=== PATIENT | female | born 1960 | race African-American/Black ===

== ENCOUNTER → 2017-08-04 | Outpatient (CLI) | payer OTHER ==
[2016-09-20 13:05] VITALS: BP 192/81
[~2017-08-04] MED LIST: DIPH25CA58 PO; FAMO-63 PO; LIDO20SO PO; PRED50TA PO
--- NOTE | 2017-08-04 15:08 | RAD ---
DATE: 08/04/2017 EXAM: DIGITAL SCREEN BILAT W/CAD HISTORY: Screening COMPARISON: One year earlier This study was interpreted with the benefit of Computerized Aided Detection (CAD). FINDINGS: Breast Density: SCATTERED The breast parenchyma shows scattered fibroglandular densities. Breast parenchyma level B. There has been little change when compared to the previous exam. Benign-appearing calcifications are noted in the left breast. Lymph nodes are noted in the left axilla IMPRESSION: Benign finding BI-RADS CATEGORY: 2 BENIGN FINDING(S) RECOMMENDED FOLLOW-UP: 12M 12 MONTH FOLLOW-UP PQRS compliance statement: Patient information was entered into a reminder system with a target due date 08/04/2018 for the next mammogram. Mammography is a sensitive method for finding small breast cancers, but it does not detect them all and is not a substitute for careful clinical examination. A negative mammogram does not negate a clinically suspicious finding and should not result in delay in biopsying a clinically suspicious abnormality. "Our facility is accredited by the [employer] Mammography [employer]."
== END | disposition home or self-care (01) ==
LOC: MAMMO 10:30
PROVIDERS: ATTEND Family Medicine
DX: Z12.31 Encounter for screening mammogram for malignant neoplasm of breast (principal)
CPT/HCPCS: G0202; 77067

== ENCOUNTER → 2018-06-27 | Outpatient (CLI) | payer OTHER ==
[2016-09-20 13:05] VITALS: BP 192/81
--- NOTE | 2018-06-27 15:06 | RAD ---
DATE: 06/27/2018 EXAM: MAMMO DAVE DIAG BILAT HISTORY: Right breast lump COMPARISON: 08/04/2017 This study was interpreted with the benefit of Computerized Aided Detection (CAD). The fibroglandular tissues in both breasts are heterogeneously somewhat nodular in character. The breast parenchyma shows scattered fibroglandular densities. Breast parenchyma level B. FINDINGS: 2-D and 3-D tomosynthesis imaging was performed in CC and MLO projections. The patient cannot currently pinpoint a palpable lump, however, reportedly the area of concern was at the 9:00 location in the right breast. No new or enlarging breast densities are seen. Benign type calcifications are present. No suspicious microcalcifications have developed. Right breast ultrasound, 06/27/2018: A targeted ultrasound exam of the right breast was performed from the 8:00 to 10:00 locations. The fibroglandular tissues are heterogeneous. No solid mass or unusual fluid collection is seen. There is a suggestion of a small benign-appearing lymph node at the 9:00 location. IMPRESSION: 1. Stable mammograms without evidence of malignancy. 2. The targeted ultrasound exam of the right breast reveals no significant abnormality. 3. Further clinical surveillance of any area of palpable concern is suggested. BI-RADS CATEGORY: 2 BENIGN FINDING(S) RECOMMENDED FOLLOW-UP: 12M 12 MONTH FOLLOW-UP PQRS compliance statement: Patient information was entered into a reminder system with a target due date for the next mammogram. Mammography is a sensitive method for finding small breast cancers, but it does not detect them all and is not a substitute for careful clinical examination. A negative mammogram does not negate a clinically suspicious finding and should not result in delay in biopsying a clinically suspicious abnormality. "Our facility is accredited by the [employer] Mammography [employer]."
== END | disposition home or self-care (01) ==
LOC: MAMMO 15:16
PROVIDERS: ATTEND Obstetrics & Gynecology
DX: R92.8 Other abnormal and inconclusive findings on diagnostic imaging of breast (principal); I10 Essential (primary) hypertension
CPT/HCPCS: 76641; 77066; G0279; 77062

== ENCOUNTER → 2019-11-20 | Outpatient (CLI) | payer OTHER ==
[2019-04-10 21:20] VITALS: BP 143/67
--- NOTE | 2019-11-21 12:56 | RAD ---
EXAM: BILATERAL DIGITAL SCREENING MAMMOGRAPHY. HISTORY: Routine mammographic screening. TECHNIQUE: Bilateral full field digital images were obtained in CC and MLO projections. Computer-aided detection was applied. COMPARISON: 08/04/2017. COMPOSITION: B. There are scattered areas of fibroglandular density. FINDINGS: Coarse and scattered calcifications are benign. There are no suspicious masses, microcalcifications or architectural distortion. The parenchymal pattern is stable. BI-RADS CATEGORY 2: Benign. RECOMMENDATION: 1. Routine screening mammography in one year. If mammography demonstrates dense breast tissue (heterogenously dense or extremely dense, category C or D), which could hide abnormalities, and if other risk factors for breast cancer have been identified, supplemental screening tests that may be suggested by the ordering physician may be of benefit. Dense breast tissue, in and of itself, is a relatively common condition. Therefore, this information is not provided to cause undue concern, but rather to raise awareness and to promote discussion with the referring physician regarding the presence of other risk factors, in addition to dense breast tissue. The results of this mammography examination is provided to the patient and referring physician. The patient should contact their referring physician if any questions or concerns exist regarding this report. PQRS compliance statement - Patient information was entered into a reminder system with a target due date for the next mammogram. "Our facility is accredited by the [employer] Mammography [employer]." Electronically signed by: Bobby Phillips MD (11/21/2019 12:53 PM) [id number]
== END | disposition home or self-care (01) ==
LOC: MAMMO 13:47
PROVIDERS: ATTEND Family Medicine
DX: Z12.31 Encounter for screening mammogram for malignant neoplasm of breast (principal); N64.89 Other specified disorders of breast
CPT/HCPCS: 77067

== ENCOUNTER → 2021-03-10 | Outpatient (CLI) | payer OTHER ==
[2019-04-10 21:20] VITALS: BP 143/67
--- NOTE | 2021-03-10 11:50 | RAD ---
EXAM: Bilateral screening mammogram. HISTORY: 66-year-old female presents for screening mammography. TECHNIQUE: Full-field digital craniocaudal and mediolateral oblique views of both breasts are obtaine d for evaluation. Computer aided detection was applied. COMPARISON: 11/20/2019 BREAST PARENCHYMAL DENSITY: Level B - Scattered fibroglandular densities. FINDINGS: There is a small nodular asymmetry within the posterior lateral aspect of the right breast in the craniocaudal projection. There are additional areas of nodularity and asymmetry within both br easts which are stable when allowing for differences in technique. There are multiple benign calcific ations. There is no convincing architectural distortion. IMPRESSION: BI-RADS Category 0: Incomplete. Additional imaging needed. RECOMMENDATION: Further evaluation with a full field true lateral view and spot compression craniocau alexandrea view of the right breast to assess nodular asymmetry within the posterior lateral breast is recom mended. Sonographic imaging can also be performed if deemed indicated based on additional mammographi c findings. If your mammogram demonstrates that you have dense breast tissue, which could hide abnormalities, and if you have other risk factors for breast cancer that have been identified, you might benefit from s upplemental screening tests that may be suggested by your ordering physician. Dense breast tissue, i n and of itself, is a relatively common condition. This information is not provided to cause undue c oncern, but rather to raise your awareness and to promote discussion with your physician regarding th e presence of other risk factors, in addition to dense breast tissue. A report of your mammography re sults will be sent to you and your physician. You should contact your physician if you have any ques tions or concerns regarding this report. Mammography is a sensitive method for finding small breast cancers, but it does not detect them all a nd is not a substitute for careful clinical examination. A negative mammogram does not negate a clin ically suspicious finding and should not result in delay in biopsying a clinically suspicious abnorma lity. PQRS compliance statement - Patient information was entered into a reminder system with a target due date for the next mammogram. "Our facility is accredited by the [employer] Mammography [employer]." Electronically signed by: Viji Nicholson MD (03/10/2021 11:48 AM) [id number]
== END ==
LOC: MAMMO 11:04
PROVIDERS: ATTEND Family Medicine
DX: Z12.31 Encounter for screening mammogram for malignant neoplasm of breast (principal)
CPT/HCPCS: 77067

== ENCOUNTER → 2021-03-18 | Outpatient (CLI) | payer OTHER ==
[2019-04-10 21:20] VITALS: BP 143/67
--- NOTE | 2021-03-18 13:55 | RAD ---
EXAM: Right breast diagnostic mammogram; right breast sonogram. HISTORY: 66-year-old female presents for reduction of nodular asymmetry within the right breast demon strated on a screening mammogram dated 03/10/2021. TECHNIQUE: Full-field digital and spot compression views of the right breast are obtained. Sonographi c imaging of the right breast targeted to the site of nodular asymmetry was also performed. COMPARISON: 03/10/2021 and 06/27/2018 BREAST PARENCHYMAL DENSITY: Level B - Scattered fibroglandular densities. FINDINGS: There is a persistent nodular density within the posterior 9:00 position of the right breas t with additional mammographic views. Sonographic imaging of the right breast targeted to sites of mammographic nodularity demonstrates wel l-defined angulated hypoechoic lesion measuring approximately 7 mm at the 9:00 position 12 cm from th e nipple. This appears separate from an overlying scar due to a reported prior benign lumpectomy. Thi s likely corresponds with the area of mammographic nodular asymmetry. There are benign-appearing axil sonny lymph nodes. IMPRESSION: 1. 7 mm ill-defined angulated hypoechoic lesion at the posterior 9:00 position of the right breast, l ikely corresponding with nodular asymmetry in this location demonstrated mammographically. This canno t clearly be attributed to scarring related to a prior benign lumpectomy. Given the imaging appearanc e and absence of a correlate on a prior sonogram dated 06/27/2018 and prior mammograms, sonographic elder ded biopsy is recommended for definitive diagnosis. 2. BI-RADS Category 4: Suspicious abnormality. Biopsy is recommended. These findings and recommendations were discussed with the patient and [place] nurse for the ordering p gabrielle, at 1340 hours on 03/18/2021. If your mammogram demonstrates that you have dense breast tissue, which could hide abnormalities, and if you have other risk factors for breast cancer that have been identified, you might benefit from s upplemental screening tests that may be suggested by your ordering physician. Dense breast tissue, i n and of itself, is a relatively common condition. This information is not provided to cause undue c oncern, but rather to raise your awareness and to promote discussion with your physician regarding th e presence of other risk factors, in addition to dense breast tissue. A report of your mammography re sults will be sent to you and your physician. You should contact your physician if you have any ques tions or concerns regarding this report. Mammography is a sensitive method for finding small breast cancers, but it does not detect them all a nd is not a substitute for careful clinical examination. A negative mammogram does not negate a clin ically suspicious finding and should not result in delay in biopsying a clinically suspicious abnorma lity. PQRS compliance statement - Patient information was entered into a reminder system with a target due date for the next mammogram. "Our facility is accredited by the [employer] Mammography [employer]." Electronically signed by: Viji Nicholson MD (03/18/2021 1:53 PM) [id number]
== END ==
LOC: MAMMO 16:20
PROVIDERS: ATTEND Family Medicine
DX: R92.8 Other abnormal and inconclusive findings on diagnostic imaging of breast (principal)
CPT/HCPCS: 76641; 77065

== ENCOUNTER → 2021-04-07 | Outpatient (CLI) | payer OTHER ==
[2019-04-10 21:20] VITALS: BP 143/67
--- NOTE | 2021-04-07 11:08 | RAD ---
US BREAST RT History:Reason: Rt Abnormal Mamm / Spl. Instructions: / History: Comparison: March 18, 2021 and March 10, 2021 as well as November 20, 2019. Technique: Sonographic examination of the right breast was performed and multiple static images wer e obtained. Findings: Hypoechoic angular area within the right breast 9:00 position approximately 12 cm from the nipple was evaluated with increased compression on ultrasound and cine loop was taken. The region appears to bl end in with adjacent parenchyma. Regions of posterior shadowing or less apparent on the current exami nation compared to prior. Results were discussed with the patient the patient was amenable for follow-up. Impression: 1. Hypoechoic area within the right breast is less apparent compared to prior. Finding may relate to prior excisional biopsy. Recommend 6 month follow-up right mammogram and ultrasound. BI-RADS Category 3: Probably Benign. Electronically signed by: Kadeem Scruggs DO (04/07/2021 11:06 AM) [id number]
== END ==
LOC: US 09:17
PROVIDERS: ATTEND Family Medicine
DX: R92.8 Other abnormal and inconclusive findings on diagnostic imaging of breast (principal); N64.89 Other specified disorders of breast
CPT/HCPCS: 76641

== ENCOUNTER 2021-04-11 11:45 | Emergency (ER) | payer OTHER ==
[~2021-04-11] VITALS: Ht 170.2 cm; Wt 145.0 kg
[2021-04-11 12:04] VITALS: BP 161/73
[2021-04-11] MEDS ORDERED: AZIT250T6 PO (13:18)
--- NOTE | 2021-04-11 13:18 | PHYS DOC ---
Past Medical History Past Medical History: Arthritis, Diabetes-Type II, Hypertension, Hypothyroid Past Surgical History: Cholecystectomy, Hysterectomy, Tonsillectomy, Other Additional Past Surgical Histo: breast reduction Smoking Status: Never Smoker Alcohol Use: Rarely Drug Use: None General Adult EDM: Chief Complaint: EARACHE/EAR PAIN HPI: HPI: Patient is a 60 year old Female who presents with 2 days of right ear pain that is throbbing. She rates pain 6 out of 10. She denies of fever, nausea, vomiting, diarrhea, nasal congestion, dizziness, muffled hearing, chest pain, shortness of breath, cough, vision change, numbness or tingling, focal weakness. Patient has a history of hypertension, hypothyroidism, diabetes, arthritis, cholecystectomy, hysterectomy. Review of Systems: Review of Systems: Constitutional: Denies fever or chills. [] Eyes: Denies change in visual acuity. [] HENT: Denies nasal congestion or sore throat. + Ear pain [] Respiratory: Denies cough or shortness of breath. [] Cardiovascular: Denies chest pain or edema. [] GI: Denies abdominal pain, nausea, vomiting, bloody stools or diarrhea. [] : Denies dysuria. [] Musculoskeletal: Denies back pain or joint pain. + Raise lymph node [] Integument: Denies rash. [] Neurologic: Denies headache, focal weakness or sensory changes. [] Endocrine: Denies polyuria or polydipsia. [] Lymphatic: Denies swollen glands. [] Psychiatric: Denies depression or anxiety. [] Heart Score: C/O Chest Pain: No Risk Factors: Risk Factors: DM, Current or recent (<one month) smoker, HTN, HLP, family h istory of CAD, obesity. Risk Scores: Score 0 - 3: 2.5% MACE over next 6 weeks - Discharge Home Score 4 - 6: 20.3% MACE over next 6 weeks - Admit for Clinical Observation Score 7 - 10: 72.7% MACE over next 6 weeks - Early Invasive Strategies Allergies: Allergies: Allergies Coded Allergies Type Severity Reaction Last Updated Verified Penicillins Allergy Intermediate 04/10/19 Yes codeine Allergy Intermediate 04/10/19 Yes zolpidem Allergy Intermediate 04/10/19 Yes Physical Exam: PE: Constitutional: Well developed, well nourished, no acute distress, non-toxic appearance. [] HENT: Normocephalic, atraumatic, bilateral external ears normal, oropharynx moist, no oral exudates, nose normal. Bilateral tympanic's intact but pink. [] Eyes: PERRLA, EOMI, conjunctiva normal, no discharge. [] Neck: Normal range of motion, no tenderness, supple, no stridor. [] Cardiovascular:Heart rate regular rhythm, no murmur [] Lungs & Thorax: Bilateral breath sounds clear to auscultation [] Abdomen: Bowel sounds normal, soft, no tenderness, no masses, no pulsatile masses. [] Skin: Warm, dry, no erythema, no rash. + Raise lymph node beside the ear. Superficial abrasion over the lymph node due to patient scratching and squeezing. [] Back: No tenderness, no CVA tenderness. [] Extremities: No tenderness, no cyanosis, no clubbing, ROM intact, no edema. [] Neurologic: Alert and oriented X 3, normal motor function, normal sensory function, no focal deficits noted. [] Psychologic: Affect normal, judgement normal, mood normal. [] Current Patient Data: Vital Signs: Vital Signs Date Time Temp Pulse Resp B/P (MAP) Pulse Ox O2 Delivery O2 Flow Rate FiO2 04/11/21 12:04 97.5 76 16 161/73 (102) 93 Room Air 97.5 EKG: EKG: [] Radiology/Procedures: Radiology/Procedures: [] Course & Med Decision Making: Course & Med Decision Making Pertinent Labs and Imaging studies reviewed. (See chart for details) See HPI. Alert and oriented x4. Ambulatory with steady gait. Patient uses a walker. Bilateral tympanic's are pink and cloudy. The right ear is tender with examination. She does have a raised lymph node in the jawline beside the ear. Patient has been squeezing and picking at it. I told the patient not to do that any longer. She now has a superficial abrasion in that spot. She is afebrile. Speaks in full clear sentences. Patient be placed on antibiotic. Lungs are clear to auscultate in all lobes. She is to follow-up with her primary care doctor. [] Annika Disclaimer: Annika Disclaimer: This electronic medical record was generated, in whole or in part, using a voice recognition dictation system. Departure Departure Impression: Primary Impression: Otitis media Qualified Codes: H66.003 - Acute suppurative otitis media without spontaneous rupture of ear drum, bilateral Disposition: HOME / SELF CARE / HOMELESS Condition: STABLE Referrals: DOROTEO HERNANDEZ MD (PCP) Patient Instructions: Otitis Media, Adult Additional Instructions: Follow-up with primary care provider. Use your pain medication at home to help with any kind of pain. If any of your symptoms worsen he can always come back. Scripts Azithromycin (AZITHROMYCIN TABLET) 250 Mg Tablet 1 PKG PO UD for 5 Days, #6 TAB 0 Refills 2 the first day followed by 1 for days 2-5 Prov: ANDREINA GARCES APRN 04/11/21 ANDREINA GARCES APRN Apr 11, 2021 13:18
== END 2021-04-11 13:30 | disposition home or self-care (01) ==
LOC: ER 11:45
DX: H66.003 Acute suppurative otitis media without spontaneous rupture of ear drum, bilateral (principal); M19.90 Unspecified osteoarthritis, unspecified site; E11.9 Type 2 diabetes mellitus without complications; I10 Essential (primary) hypertension; E03.9 Hypothyroidism, unspecified; Z88.0 Allergy status to penicillin; Z88.5 Allergy status to narcotic agent; Z88.8 Allergy status to other drugs, medicaments and biological substances
CPT/HCPCS: 99283

== ENCOUNTER 2021-06-25 11:29 | Emergency (ER) | payer OTHER ==
[~2021-06-25] VITALS: Ht 170.2 cm; Wt 134.1 kg
[~2021-06-25 11:29] MED LIST changes: +AZIT250T6 PO
[2021-06-25] MEDS ORDERED: ONDANSETRON PF 4 MG/2 ML VIAL. IVP ONE (12:30)
[2021-06-25] MEDS ORDERED: IV NORMAL SALINE 1000ML BAG 1,000 ML IV ONE (12:30)
[2021-06-25] MEDS ORDERED: fentaNYL PF VIAL 100 MCG/2 ML VIAL IVP ONE (12:30)
[2021-06-25 13:24] LABS: BASO # 0.1 x10^3/uL (0.0-0.2); BASO % 1 % (0-3); EOS # 0.2 x10^3/uL (0.0-0.7); EOS % 3 % (0-3); HEMATOCRIT 39.2 % (36.0-47.0); HEMOGLOBIN 12.7 g/dL (12.0-15.5); LYMPH # 0.9 x10^3/uL (1.0-4.8); LYMPH % 14 % (24-48); MEAN CORPUSCULAR HEMOGLOBIN 27 pg (25-35); MEAN CORPUSCULAR HGB CONC 33 g/dL (31-37); MEAN CORPUSCULAR VOLUME 83 fL (79-100); MONO # 0.9 x10^3/uL (0.0-1.1); MONO % 14 % (0-9); NEUT # 4.5 x10^3/uL (1.8-7.7); NEUT % 69 % (31-73); PLATELET COUNT 208 x10^3/uL (140-400); RED BLOOD COUNT 4.71 x10^6/uL (3.50-5.40); RED CELL DISTRIBUTION WIDTH 14.6 % (11.5-14.5); WHITE BLOOD COUNT 6.5 x10^3/uL (4.0-11.0)
[2021-06-25 13:27] LABS: BILIRUBIN,URINE NEGATIVE (NEG); CLARITY,URINE CLEAR; COLOR,URINE YELLOW; NITRITE,URINE NEGATIVE (NEG); PROTEIN,URINE NEGATIVE (NEG-TRACE)
[2021-06-25 13:36] LABS: CALCIUM 8.9 mg/dL (8.5-10.1); CREATININE 0.7 mg/dL (0.6-1.0); GFR 102.6; POTASSIUM 3.6 mmol/L (3.5-5.1)
[2021-06-25] MEDS ORDERED: IOHEXOL 300 MG/ML 100ML VIAL. IV ONE (13:45)
[2021-06-25 13:46] LABS: ALBUMIN 3.4 g/dL (3.4-5.0); TOTAL BILIRUBIN 0.7 mg/dL (0.2-1.0); TOTAL PROTEIN 6.8 g/dL (6.4-8.2)
[2021-06-25] MEDS ORDERED: IOHEXOL 300 MG/ML 100ML VIAL. ONE (13:46)
[2021-06-25 13:48] LABS: BACTERIA,URINE 0 /HPF (0-FEW); RBC,URINE 0 /HPF (0-2); WBC,URINE 0 /HPF (0-4)
--- NOTE | 2021-06-25 14:17 | RAD ---
INDICATION: Reason: RLQ PAIN / Spl. Instructions: omni 300 75ml / History: . COMPARISON: None. TECHNIQUE: Axial CT images obtained through the abdomen and pelvis with contrast. One or more of the following individualized dose reduction techniques were utilized for this examinat ion: 1. Automated exposure control; 2. Adjustment of the mA and/or kV according to patient size; 3 . Use of iterative reconstruction technique. FINDINGS: Scattered calcific atherosclerosis. Postcholecystectomy changes. The liver is enlarged. No peripancreatic fluid collection. There is some foci of arterial enhancement within the spleen measuring up to about 16 mm. There is some nodular thickening of the left adrenal gland measuring up to about 14 mm. Nonobstructive left renal stone. No hydronephrosis. Nonobstructive right renal stone. Urinary bladder is partially distended. There is some distention of a portion of the sigmoid colon. There is also somewhat distended appearan ce of the cecum with air and stool. No periappendiceal inflammatory changes. There are some laxity of the anterior abdominal wall. This includes at the anterior aspect of the pel vis with laxity of the anterior abdominal wall in some loops of bowel extending into the pannus. Degenerative changes the spine with multilevel central canal and neural foraminal stenosis. Suspected small fat-containing anterior abdominal wall hernia. IMPRESSION: * No evidence of appendicitis. * Bilateral nonobstructive renal stones without hydronephrosis. * There is a couple mildly prominent loops of bowel but no high-grade transition point to suggest ob struction. * Degenerative changes throughout the spine with multilevel central canal and neural foraminal steno sis. * There is some suspected arterial enhancing lesions within the spleen. These have an indeterminate in appearance with vascular shunts or flash filling hemangioma within the differential but other jeanine rial enhancing lesions are not excluded and if additional workup is desired either a follow-up CT cou ld BE obtained to ensure no growth or MRI could BE obtained to further assess. Electronically signed by: Jasper Blackwell MD (06/25/2021 2:14 PM) [id number]
[2021-06-25 14:51] VITALS: BP 158/74
--- NOTE | 2021-06-25 15:00 | PHYS DOC ---
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) Past Surgical History: Cholecystectomy, Hysterectomy, Tonsillectomy, Other Additional Past Surgical Histo: breast reduction ([employer] INSTRUCTOR) Smoking Status: Never Smoker Alcohol Use: Occasionally Drug Use: None ([employer]CTOR) General Adult EDM: Chief Complaint: FLANK PAIN HPI: HPI: Patient is a 60 year old female with history of diabetes type 2, hypertension, among other illnesses who presents to the ED today complaining of 7 out of 10 sharp intermittent right lower quadrant abdominal pain, symptoms have been going on intermittently since yesterday. Patient denies anything specifically exacerbating or relieving the symptoms. Denies any nausea vomiting. Patient states she has chronic bladder problems and has of vaginal cyst. She states she is in the process of seeing an HOT ROOM ATTENDANT to remove it. ([employer] INSTRUCTOR) Review of Systems: Review of Systems: Constitutional: Denies fever or chills. [] Eyes: Denies change in visual acuity. [] HENT: Denies nasal congestion or sore throat. [] Respiratory: Denies cough or shortness of breath. [] Cardiovascular: Denies chest pain or edema. [] GI: Reports right lower quadrant abdominal pain, denies nausea, vomiting, bl oody stools or diarrhea. [] : Denies dysuria. [] Musculoskeletal: Denies back pain or joint pain. [] Integument: Denies rash. [] Neurologic: Denies headache, focal weakness or sensory changes. [] Psychiatric: Denies depression or anxiety. [] ([employer] INSTRUCTOR) Heart Score: C/O Chest Pain: N/A Risk Factors: Risk Factors: DM, Current or recent (<one month) smoker, HTN, HLP, family history of CAD, obesity. Risk Scores: Score 0 - 3: 2.5% MACE over next 6 weeks - Discharge Home Score 4 - 6: 20.3% MACE over next 6 weeks - Admit for Clinical Observation Score 7 - 10: 72.7% MACE over next 6 weeks - Early Invasive Strategies ([employer]CTOR) Current Medications: Current Medications Medications (Trade) Dose Ordered Sig/Brooks Start Time Stop Time Status Last Admin Dose Admin Fentanyl Citrate (Fentanyl 2ml Vial) 50 mcg 1X ONCE 06/25/21 12:30 06/25/21 12:31 DC 06/25/21 13:02 50 MCG Iohexol (Omnipaque 300 Mg/ml) 100 ml STK-MED ONCE 06/25/21 13:46 06/25/21 13:46 DC Ondansetron HCl (Zofran) 4 mg 1X ONCE 06/25/21 12:30 06/25/21 12:31 DC 06/25/21 13:02 4 MG Sodium Chloride 1,000 ml @ 1,000 mls/hr 1X ONCE 06/25/21 12:30 06/25/21 13:29 DC 06/25/21 13:01 1,000 MLS/HR (ALBAN CARTER APRN) Allergies: Allergies: Allergies Coded Allergies Type Severity Reaction Last Updated Verified Penicillins Allergy Intermediate 04/10/19 Yes codeine Allergy Intermediate 04/10/19 Yes zolpidem Allergy Intermediate 04/10/19 Yes ([employer]CTOR) Physical Exam: PE: Constitutional: Morbidly obese patient, no acute distress, non-toxic appearance. [] HENT: Normocephalic, atraumatic, bilateral external ears normal, oropharynx ál[address], no oral exudates, nose normal. [] Eyes: PERRLA, EOMI, conjunctiva normal, no discharge. [] Neck: Normal range of motion, no tenderness, supple, no stridor. [] Cardiovascular:Heart rate regular rhythm, no murmur [] Lungs & Thorax: Bilateral breath sounds clear to auscultation [] Abdomen: Rounded abdomen. Bowel sounds normal, soft, slight tenderness in the right lower quadrant, no right upper quadrant tenderness, negative Scott sign, negative psoas sign, negative obturator sign, exam difficult patient very obese no, no masses, no pulsatile masses. [] Skin: Warm, dry, no erythema, no rash. [] Back: No tenderness, no CVA tenderness. [] Extremities: No tenderness, no cyanosis, no clubbing, ROM intact, no edema. [] Neurologic: Alert and oriented X 3, normal motor function, normal sensory funct ion, no focal deficits noted. [] Psychologic: Affect normal, judgement normal, mood normal. [] (ALBAN CARTER APRN) Current Patient Data: Labs: Laboratory Tests Test 06/25/21 12:15 06/25/21 12:45 Urine Collection Type Unknown Urine Color Yellow Urine Clarity Clear Urine pH 7.0 (<5.0-8.0) Urine Specific Hammond <=1.005 (1.000-1.030) Urine Protein Negative mg/dL (NEG-TRACE) Urine Glucose (UA) Negative mg/dL (NEG) Urine Ketones (Stick) Negative mg/dL (NEG) Urine Blood Negative (NEG) Urine Nitrite Negative (NEG) Urine Bilirubin Negative (NEG) Urine Urobilinogen Dipstick 1.0 mg/dL (0.2 mg/dL) Urine Leukocyte Esterase Negative (NEG) Urine RBC 0 /HPF (0-2) Urine WBC 0 /HPF (0-4) Urine Squamous Epithelial Cells Occ /LPF Urine Bacteria 0 /HPF (0-FEW) White Blood Count 6.5 x10^3/uL (4.0-11.0) Red Blood Count 4.71 x10^6/uL (3.50-5.40) Hemoglobin 12.7 g/dL (12.0-15.5) Hematocrit 39.2 % (36.0-47.0) Mean Corpuscular Volume 83 fL (79-100) Mean Corpuscular Hemoglobin 27 pg (25-35) Mean Corpuscular Hemoglobin Concent 33 g/dL (31-37) Red Cell Distribution Width 14.6 % (11.5-14.5) H Platelet Count 208 x10^3/uL (140-400) Neutrophils (%) (Auto) 69 % (31-73) Lymphocytes (%) (Auto) 14 % (24-48) L Monocytes (%) (Auto) 14 % (0-9) H Eosinophils (%) (Auto) 3 % (0-3) Basophils (%) (Auto) 1 % (0-3) Neutrophils # (Auto) 4.5 x10^3/uL (1.8-7.7) Lymphocytes # (Auto) 0.9 x10^3/uL (1.0-4.8) L Monocytes # (Auto) 0.9 x10^3/uL (0.0-1.1) Eosinophils # (Auto) 0.2 x10^3/uL (0.0-0.7) Basophils # (Auto) 0.1 x10^3/uL (0.0-0.2) Sodium Level 140 mmol/L (136-145) Potassium Level 3.6 mmol/L (3.5-5.1) Chloride Level 101 mmol/L (98-107) Carbon Dioxide Level 34 mmol/L (21-32) H Anion Gap 5 (6-14) L Blood Urea Nitrogen 11 mg/dL (7-20) Creatinine 0.7 mg/dL (0.6-1.0) Estimated GFR (Cockcroft-Gault) 102.6 BUN/Creatinine Ratio 16 (6-20) Glucose Level 111 mg/dL (70-99) H Calcium Level 8.9 mg/dL (8.5-10.1) Total Bilirubin 0.7 mg/dL (0.2-1.0) Aspartate Amino Transferase (AST) 21 U/L (15-37) Alanine Aminotransferase (ALT) 20 U/L (14-59) Alkaline Phosphatase 78 U/L (46-116) Total Protein 6.8 g/dL (6.4-8.2) Albumin 3.4 g/dL (3.4-5.0) Albumin/Globulin Ratio 1.0 (1.0-1.7) Lipase 78 U/L (73-393) Laboratory Tests 06/25/21 12:45 Laboratory Tests 06/25/21 12:45 Vital Signs: Vital Signs Date Time Temp Pulse Resp B/P (MAP) Pulse Ox O2 Delivery O2 Flow Rate FiO2 06/25/21 14:51 72 12 158/74 (102) 91 Room Air 06/25/21 12:20 98.7 98.7 (ALBAN CARTER APRN) EKG: EKG: [] (ALBAN CARTER APRN) Radiology/Procedures: Radiology/Procedures: []PROCEDURE: CT ABD PELV W/ IV CONTRST ONLY INDICATION: Reason: RLQ PAIN / Spl. Instructions: omni 300 75ml / History: . COMPARISON: None. TECHNIQUE: Axial CT images obtained through the abdomen and pelvis with contrast. One or more of the following individualized dose reduction techniques were utilized for this examination: 1. Automated exposure control; 2. Adjustment of the mA and/or kV according to patient size; 3. Use of iterative reconstruction technique. FINDINGS: Scattered calcific atherosclerosis. Postcholecystectomy changes. The liver is enlarged. No peripancreatic fluid collection. There is some foci of arterial enhancement within the spleen measuring up to about 16 mm. There is some nodular thickening of the left adrenal gland measuring up to about 14 mm. Nonobstructive left renal stone. No hydronephrosis. Nonobstructive right renal stone. Urinary bladder is partially distended. There is some distention of a portion of the sigmoid colon. There is also somewhat distended appearance of the cecum with air and stool. No periappendiceal inflammatory changes. There are some laxity of the anterior abdominal wall. This includes at the anterior aspect of the pelvis with laxity of the anterior abdominal wall in some loops of bowel extending into the pannus. Degenerative changes the spine with multilevel central canal and neural foraminal stenosis. Suspected small fat-containing anterior abdominal wall hernia. IMPRESSION: * No evidence of appendicitis. * Bilateral nonobstructive renal stones without hydronephrosis. * There is a couple mildly prominent loops of bowel but no high-grade transition point to suggest obstruction. * Degenerative changes throughout the spine with multilevel central canal and neural foraminal stenosis. * There is some suspected arterial enhancing lesions within the spleen. These have an indeterminate in appearance with vascular shunts or flash filling hemangioma within the differential but other arterial enhancing lesions are not excluded and if additional workup is desired either a follow-up CT could BE obtained to ensure no growth or MRI could BE obtained to further assess. Electronically signed by: Elizabet Vargas MD (06/25/2021 2:14 PM) [id number] DICTATED and SIGNED BY: ELIZABET VARGAS MD DATE: 06/25/21 [id number] 0 (ALBAN CARTER APRN) Course & Med Decision Making: Course & Med Decision Making Pertinent Labs and Imaging studies reviewed. (See chart for details) This is a 60-year-old female patient presented to the ED today complaining of right lower quadrant abdominal pain, symptoms began yesterday. CBC CMP UA with no acute findings. Patient is afebrile, blood pressures in the 150s over 70s to 120s over 70[address]. CT of the abdomen and pelvis is negative for appendicitis. Noted for bilateral nonobstructive renal stones without hydronephrosis-patient follows up with a urologist. There is some suspected arterial enhancing lesions within the spleen. These have an indeterminate in appearance with vascular shunts or flash filling hemangioma within the differential but other arterial enhancing lesions are not excluded and if additional workup is desired either a follow-up CT could BE obtained to ensure no growth or MRI could BE obtained to further assess- Instructed patient to follow-up with her own PCP to obtain a follow-up CT or MRI. (ALBAN CARTER APRN) Course & Med Decision Making I have reviewed and was available for consultation in the emergency department for this patient that was seen by midlevel provider. Agree with plan. Joel Collier DO (JOEL COLLIER DO) Dragon Disclaimer: Dragon Disclaimer: This electronic medical record was generated, in whole or in part, using a voice recognition dictation system. (ALBAN CARTER APRN) Departure Departure Impression: Primary Impression: Right lower quadrant pain Disposition: HOME / SELF CARE / HOMELESS Condition: STABLE Referrals: UNKNOWN PCP NAME (PCP) Follow-up with your primary care doctor ONEIL PAIGE MD Follow-up with your HOT ROOM ATTENDANT or the provided HOT ROOM ATTENDANT Patient Instructions: Abdominal Pain (Nonspecific) Additional Instructions: You were evaluated in the emergency room for abdominal pain. Your labs are negative for any acute findings, your urine was negative for infection. Your CT of the abdomen and pelvis was negative for any acute findings, you are noted to have some kidney stones in your kidneys, this needs to be followed up with your urologist. Please follow-up with your primary care doctor and HOT ROOM ATTENDANT, you have an HOT ROOM ATTENDANT on your discharge paperwork, you can see them if you desire. Come back to the ED at any point symptoms worsen ALBAN CARTER APRN Jun 25, 2021 15:00 JOEL COLLIER DO Jun 25, 2021 16:09
== END 2021-06-25 15:40 | disposition home or self-care (01) ==
LOC: ER 11:29
DX: R10.31 Right lower quadrant pain (principal); M19.90 Unspecified osteoarthritis, unspecified site; E11.9 Type 2 diabetes mellitus without complications; I10 Essential (primary) hypertension; E03.9 Hypothyroidism, unspecified; Z90.49 Acquired absence of other specified parts of digestive tract; Z90.710 Acquired absence of both cervix and uterus; Z88.0 Allergy status to penicillin; Z88.5 Allergy status to narcotic agent; Z88.8 Allergy status to other drugs, medicaments and biological substances
CPT/HCPCS: 36415; 74177; 80053; 81001; 83690; 85025; 96361; 96374; 96375; 99285; J2405; J3010; J7030; Q9967